=== PATIENT | male | born 1935 | race African-American/Black ===

== ENCOUNTER 2021-12-24 08:33 | Inpatient (IN) | payer MEDICARE, MEDICAID ==
[~2021-12-24] VITALS: Ht 185.4 cm; Wt 92.2 kg
[~2021-12-24 08:33] MED LIST: ASPI-986 MT; CLOP-31 MT; FURO40TA5 PO; INS7030 SUBCUT; LINA145C PO; MAGN400T26 PO; OLME40TA18 PO; TAMS-11 PO; VITA-137
[2021-12-24] MEDS ORDERED: OXYB5TAB17 PO (10:09)
[2021-12-24] MEDS ORDERED: SEMA3TAB (10:11)
[2021-12-24] MEDS ORDERED: LIDOCAINE HCL 1% 20ML VIAL (Pyxis) INJ ONE ×3 (11:48→12:14)
[2021-12-24] MEDS ORDERED: MIDAZOLAM HCL 2 MG/2 ML VIAL ONE (12:14)
[2021-12-24] MEDS ORDERED: FENTANYL CITRATE/PF 50MCG/ML 2ML VIAL ONE (12:14)
[2021-12-24] MEDS ORDERED: IODIXANOL 320MG/ML 100 ML BOTTLE IV ONE (12:15)
[2021-12-24] MEDS ORDERED: HEPARIN 1000 UNITS/ML 10ML ONE (13:00)
[2021-12-24] MEDS ORDERED: IOHEXOL-300 100 ML BOTTLE ONE (13:06)
[2021-12-24] MEDS ORDERED: ASPIRIN 325MG TABLET ONE (13:37)
[2021-12-24] MEDS ORDERED: CLOPIDOGREL 75MG TABLET ONE (13:37)
[2021-12-24] MEDS ORDERED: ONDANSETRON HCL 4MG/2ML INJ IV PRN (13:45)
[2021-12-24] MEDS ORDERED: ACETAMINOPHEN 325MG TABLET PO PRN (13:45)
[2021-12-24] MEDS ORDERED: ATROPINE SULFATE 1MG/10ML SYR IV PRN (13:45)
[2021-12-24 14:45] VITALS: BP 159/74
[2021-12-24 15:37] VITALS: BP 159/74
[2021-12-24 16:00] VITALS: BP 155/77
[2021-12-24] MEDS: LOSARTAN POTASSIUM 50 MG TABLET PO SCH (16:00)
[2021-12-24 18:00] VITALS: BP 145/86
[2021-12-24 20:00] VITALS: BP 167/115
[2021-12-25] VITALS (12 sets, daily range): BP systolic 146–159; BP diastolic 71–90
[2021-12-25 06:48] LABS: BASOPHILS % 0.5 % (0.0-2.0); EOSINOPHILS % 1.3 % (0.0-5.0); HEMOGLOBIN. 12.3 g/dL (14.0-18.0); MEAN CORPUSCULAR HEMOGLOBIN 28.4 pg (28.0-32.0); MEAN CORPUSCULAR VOLUME 85.4 fL (80.0-94.0); MONOCYTES % 10.1 % (2.0-8.0); NEUTROPHILS % 61.1 % (40.0-76.0); RED BLOOD CELL COUNT 4.34 mill/uL (4.7-6.1)
[2021-12-25 06:58] LABS: CHLORIDE 103 mEq/L (98-107)
[2021-12-25] MEDS ORDERED: CLONIDINE 0.1MG TABLET PO PRN (08:00)
[2021-12-25] MEDS ORDERED: HYDROCODONE/ACETAMINOPHEN 5/325MG TABLET PO PRN (08:00)
[2021-12-25] MEDS ORDERED: NALOXONE HCL 0.4MG/ML VIAL IV PRN (08:15)
[2021-12-25] MEDS: CLOPIDOGREL 75MG TABLET PO SCH (08:40)
[2021-12-25] MEDS: ASPIRIN 325MG TABLET PO SCH (08:40)
[2021-12-25] MEDS: LOSARTAN POTASSIUM 50 MG TABLET PO SCH (08:40)
[2021-12-25] MEDS: FUROSEMIDE 40MG TABLET PO SCH (08:41)
[2021-12-25 09:03] LABS: PLATELET 184 x1000/uL (130-400)
[2021-12-26] VITALS (9 sets, daily range): BP systolic 121–168; BP diastolic 24–98
[2021-12-26 08:03] LABS: BASOPHILS % 0.4 % (0.0-2.0); EOSINOPHILS % 1.2 % (0.0-5.0); HEMATOCRIT. 39.1 % (42.0-52.0); HEMOGLOBIN. 12.7 g/dL (14.0-18.0); MEAN CORPUSCULAR VOLUME 85.8 fL (80.0-94.0); MEAN PLATELET VOLUME 10.2 fl (7.4-10.4); MONOCYTES % 10.5 % (2.0-8.0); NEUTROPHILS % 56.9 % (40.0-76.0); PLATELET 167 x1000/uL (130-400); RED BLOOD CELL COUNT 4.56 mill/uL (4.7-6.1); RED CELL DISTRIBUTION WIDTH 13.8 % (11.6-14.6)
[2021-12-26] MEDS: ASPIRIN 325MG TABLET PO SCH (08:09)
[2021-12-26] MEDS: CLOPIDOGREL 75MG TABLET PO SCH (08:09)
[2021-12-26] MEDS: FUROSEMIDE 40MG TABLET PO SCH (08:09)
[2021-12-26] MEDS: LOSARTAN POTASSIUM 50 MG TABLET PO SCH (08:09)
[2021-12-26 08:11] LABS: CHLORIDE 101 mEq/L (98-107)
== END 2021-12-26 16:00 | disposition home health service (06) | DRG 254 ==
LOC: CCL 08:33 → 5EST 08:34
PROVIDERS: ADMIT Specialist; ATTEND Specialist
PROC: B41G1ZZ Fluoroscopy of Left Lower Extremity Arteries using Low Osmolar Contrast (ICD-10-PCS; principal; 2021-12-24)
PROC: 047N3ZZ Dilation of Left Popliteal Artery, Percutaneous Approach (ICD-10-PCS; 2021-12-24)
PROC: 047Q3ZZ Dilation of Left Anterior Tibial Artery, Percutaneous Approach (ICD-10-PCS; 2021-12-24)
DX: T82.856A Stenosis of peripheral vascular stent, initial encounter (principal); I70.212 Atherosclerosis of native arteries of extremities with intermittent claudication, left leg; I11.9 Hypertensive heart disease without heart failure; N40.0 Benign prostatic hyperplasia without lower urinary tract symptoms; E78.5 Hyperlipidemia, unspecified; Z20.822 Contact with and (suspected) exposure to COVID-19; Y83.1 Surgical operation with implant of artificial internal device as the cause of abnormal reaction of the patient, or of later complication, without mention of misadventure at the time of the procedure; R20.2 Paresthesia of skin; I45.10 Unspecified right bundle-branch block; Z88.8 Allergy status to other drugs, medicaments and biological substances; Y92.89 Other specified places as the place of occurrence of the external cause
CPT/HCPCS: 36415; 37224; 37228; 75710; 80048; 83735; 85025; 85347; 87426; 93971; C1725; C1760; C1769; C1893; C1894; J1644; J2250; J3010; J3490; Q9967